=== PATIENT | male | born 1960 | race African-American/Black ===

== ENCOUNTER 2018-12-03 08:08 | Emergency (ER) | payer MEDICAID ==
[~2018-12-03] VITALS: Ht 185.4 cm; Wt 102.1 kg
[2018-12-03] MEDS ORDERED: NKM (08:19)
--- NOTE | 2018-12-03 08:21 | NUR ---
ED Nurse Note: PT WALKED IN TO ER TODAY FROM HOME. AOX4. PT C/O LOWER BACK PAIN, 06/11 X THIS AM AROUND 0200. PT DENIES ANY RECENT TRAUMA OR INJURY BUT DOES STATE THAT HE DID INJURE HIS BACK AT WORK APRIL OF LAST YEAR. GAIT STABLE. PT DENIES NUMBNESS OR TINGLING. FULL ROM OF BILATERAL LOWER EXTREMITIES, CAP REFILL <3 SECONDS, MUSCLE STRENTH 5/5, CIRCULATION AND SENSATION INTACT.
[2018-12-03 08:24] VITALS: BP 148/96
[2018-12-03] MEDS ORDERED: IBUPROFEN600 MG ORAL (09:04)
[2018-12-03] MEDS ORDERED: MUPIROCIN22 GM TOPIC (09:04)
[2018-12-03] MEDS ORDERED: BACTRIM DS TAB1 EAC1 ORAL (09:04)
[2018-12-03] MEDS ORDERED: NORCO 5-325 TA1 EACH ORAL (09:04)
[2018-12-03] MEDS ORDERED: CYCLOBENZAPRINE10 MG ORAL (09:04)
[2018-12-03 09:09] VITALS: BP 142/92
[2018-12-03] MEDS ORDERED: BACLOFEN10 MG ORAL (10:01)
--- NOTE | 2018-12-03 10:48 | Emergency Room Report ---
History of Present Illness General Chief Complaint: Back Pain-No Injury Source: Patient Present Illness HPI Patient has a history of chronic back injury and is currently on disability. Patient has repeated exacerbations of back pain at time. Patient states that he has had extensive workup including MRI physical therapy and has occasional back spasms. He feel that he's having another back abdomen exacerbation attack. And would like to have some pain medications. He states that he also has some cramps in his left lower extremities. At times his blood pressure is elevated. He denies any headache chest pain shortness breath at this time. He is comfortable receiving pain medications. In addition patient also complains of history of ingrown toenail. He states that he does have some right toe pain. He denies any actual discharge. States that he's been trimming his own nails. 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 In addition patient also complains of papular eruptions in the back of his neck. This is near his skin line. This is consistent with folliculitis. Patient states in the past he is taking antibiotics and it has improved. He's uncertain exactly the name of the antibiotics that he's taken. No other complaints were noted.No other modifying factors. No other associated signs and symptoms. No other complaints were noted. Allergies: Coded Allergies: No Known Allergies (Unverified , 12/03/18) Patient History Past Medical History: HTN Past Surgical History: none Pertinent Family History: none Social History: Denies: smoking, alcohol use, drug use Reviewed Nursing Documentation: PMH: Agreed; PSxH: Agreed Nursing Documentation-PM Past Medical History: No Stated History Review of Systems All Other Systems: negative except mentioned in HPI Physical Exam Vital Signs Date Time Temp Pulse Resp B/P (MAP) Pulse Ox O2 Delivery O2 Flow Rate FiO2 12/03/18 08:16 98.2 85 16 155/100 96 Room Air Sp02 EP Interpretation: reviewed, normal General Appearance: alert, mild distress Head: atraumatic Eyes: bilateral eye normal inspection ENT: normal ENT inspection, hearing grossly normal, normal voice Neck: normal inspection, full range of motion, supple, no bony tend Respiratory: normal inspection, lungs clear, normal breath sounds, no respiratory distress, no retraction, no wheezing Cardiovascular #1: regular rate, rhythm, no edema Gastrointestinal: normal inspection, normal bowel sounds, non tender, soft, no guarding, no hernia Genitourinary: no CVA tenderness Musculoskeletal: tender - Lower back Neurologic: normal inspection, alert, responsive, speech normal Psychiatric: normal inspection, judgement/insight normal, mood/affect normal Skin: other - papular follicular eruptions, no abscess Medical Decision Making Diagnostic Impression: Primary Impression: Back pain Additional Impressions: Folliculitis Ingrown nail of great toe of left foot ER Course Patient presents emergency department today complaining lower back pain eruptions in the neck and toe pain. Differential considerations include back strain, folliculitis, abscess, ingrown toenail, paronychia just name a few. Patient's exam is fairly benign and no acute interventions indicated this time. Patient symptoms are chronic in character. No evidence of any acute emergency. No evidence of AAA. Patient will be given prescription for antibiotics. And pain medications.Patient is advised to follow up with primary doctor in 2-3 days and return the emergency room for any worsening symptoms and as needed. Last Vital Signs Date Time Temp Pulse Resp B/P (MAP) Pulse Ox O2 Delivery O2 Flow Rate FiO2 12/03/18 09:09 98.3 82 18 142/92 99 Room Air Status: improved Disposition: HOME, SELF-CARE Condition: Stable Scripts Baclofen* (BACLOFEN*) 10 Mg Tablet 10 MG ORAL THREE TIMES A DAY for 7 Days, TAB Prov: Brennen Ignacio MD 12/03/18 Mupirocin* (MUPIROCIN*) 22 Gm Oint...g. 1 APPLIC TOPIC THREE TIMES A DAY for 10 Days, GM Prov: Brennen Ignacio MD 12/03/18 Trimethoprim/Sulfamethoxazole 160/800* (BACTRIM DS TABLET*) 1 Each Tablet 1 TAB ORAL Q12H, #14 TAB 0 Refills Prov: Brennen Ignacio MD 12/03/18 Cyclobenzaprine Hcl* (FLEXERIL*) 10 Mg Tablet 10 MG ORAL THREE TIMES A DAY, #14 TAB Prov: Brennen Ignacio MD 12/03/18 Ibuprofen* (MOTRIN*) 600 Mg Tablet 600 MG ORAL Q8H PRN for For Pain, #20 TAB 0 Refills Prov: Brennen Ignacio MD 12/03/18 Hydrocodone Bit/Acetaminophen 5-325* (NORCO 5-325*) 1 Each Tablet 1 TAB ORAL Q6H PRN for For Pain, #10 TAB 0 Refills Prov: Brennen Ignacio MD 12/03/18 Referrals: NOT CHOSEN IPA/MD,REFERRING (PCP) Patient Instructions: Back Pain, Adult, Ingrown Toenail, Folliculitis Brennen Ignacio MD Dec 03, 2018 10:48
== END 2018-12-03 09:11 | disposition home or self-care (01) ==
LOC: EMR 08:30
DX: M54.9 Dorsalgia, unspecified (principal); G89.29 Other chronic pain; L73.9 Follicular disorder, unspecified; L60.0 Ingrowing nail; I10 Essential (primary) hypertension
CPT/HCPCS: 99282

== ENCOUNTER → 2019-06-12 | Emergency (ER) | payer MEDICAID ==
[~2019-06-12] VITALS: Ht 190.5 cm; Wt 102.5 kg
[~2019-06-12] MED LIST: BACLOFEN10 MG ORAL; BACTRIM DS TAB1 EAC1 ORAL; CYCLOBENZAPRINE10 MG ORAL; IBUPROFEN600 MG ORAL; MUPIROCIN22 GM TOPIC; NKM; NORCO 5-325 TA1 EACH ORAL; UNOBMED
[2019-06-12 17:10] VITALS: BP 149/87
--- NOTE | 2019-06-12 17:10 | NUR ---
ED Nurse Note: pt walked in to ED due to headache. per pt, "I just like to see dr while I am waiting my girlfriend to be discharge." it is ongoing issue for over 1 yr. compliant for meds. AAO x4. respirations even and non-labored noted. no cp, sob or blurry vision. will wait for the further order.
--- NOTE | 2019-06-12 17:46 | Emergency Room Report ---
History of Present Illness General Chief Complaint: Hypertension Source: Patient Present Illness HPI This patient left prior to evaluation by medical provider. Allergies: Coded Allergies: No Known Allergies (Unverified , 12/03/18) Nursing Documentation-[facility] Past Medical History: No History, Except For Hx Hypertension: Yes Physical Exam Vital Signs Date Time Temp Pulse Resp B/P (MAP) Pulse Ox O2 Delivery O2 Flow Rate FiO2 06/12/19 17:10 98.1 81 18 149/87 (107) 96 Room Air Medical Decision Making PA Attestation Dr. Chun is my supervising Physician whom patient management has been discussed with. Diagnostic Impression: Primary Impression: Patient left without being seen ER Course This patient left prior to evaluation by medical provider. Last Vital Signs Date Time Temp Pulse Resp B/P (MAP) Pulse Ox O2 Delivery O2 Flow Rate FiO2 06/12/19 17:10 98.1 81 18 149/87 (107) 96 Room Air Disposition: LEFT W/OUT BEING SEEN Condition: Unknown Nicol Dunn Jun 12, 2019 17:46
== END | disposition left against medical advice (07) ==
LOC: EMR 17:38
DX: Z53.21 Procedure and treatment not carried out due to patient leaving prior to being seen by health care provider (principal)

== ENCOUNTER 2019-10-12 19:19 | Emergency (ER) | payer MEDICAID ==
[~2019-10-12] VITALS: Ht 190.5 cm; Wt 103.4 kg
--- NOTE | 2019-10-12 20:36 | NUR ---
ED Nurse Note: Pt ambulated to ED from home lois 710 lower back and bilat knee pain, VSS except for BP 150s
[2019-10-12] MEDS ORDERED: IBUPROFEN600 MG ORAL (21:11)
[2019-10-12] MEDS ORDERED: HYDROCHLOROTHIA25 MG ORAL (21:11)
[2019-10-12] MEDS ORDERED: CYCLOBENZAPRINE10 MG ORAL (21:11)
[2019-10-12] MEDS ORDERED: BACTRIM DS TAB1 EAC1 ORAL (21:11)
--- NOTE | 2019-10-12 21:16 | Emergency Room Report ---
History of Present Illness General Chief Complaint: General Complaint Source: Patient Present Illness HPI Disclaimer: Please note that this report is being documented using [employer] technology. This can lead to erroneous entry secondary to incorrect interpretation by the dictating instrument. HPI: 59-year-old male with history of hypertension and chronic back pain after an injury 3 years ago presents for evaluation of multiple complaints. First, he is requesting a refill of his hydrochlorothiazide, 50 mg daily, which he ran out of a few weeks ago. He is also requesting a refill of Bactrim which she was treated with 4 months ago for folliculitis of his upper neck. He states it is come back after getting his haircut a little while ago complaining of worsening pain and occasional bleeding while combing. Denies any fevers chills or blistering otherwise. He denies any headaches, visual changes, lightheadedness, fatigue chest pain shortness of breath, abdominal pain, vomiting, diarrhea, dysuria, hematuria, urinary retention, lower extremity weakness. He is complaining of chronic low back pain for which he used to take hydrocodone's but ran out. He does not have a PMD. He is asking for medication refills. Denies any new injury. Denies numbness, tingling, weakness. PMH: Chronic back pain, hypertension, folliculitis PSH: Denies Allergies: Denies Social Hx: Denies Allergies: Coded Allergies: No Known Allergies (Unverified , 12/03/18) Nursing Documentation-PMH Hx Hypertension: Yes Hx Diabetes: Yes Review of Systems All Other Systems: negative except mentioned in HPI Physical Exam Vital Signs Date Time Temp Pulse Resp B/P (MAP) Pulse Ox O2 Delivery O2 Flow Rate FiO2 10/12/19 19:30 98.2 78 19 157/86 (109) 96 Room Air General: Awake and alert, no acute distress HEENT: NC/AT. EOMI. uvula is midline. Tonsils are 1+. Mild pharyngeal erythema but no edema, no exudate, no purulence Cardiovascular: RRR. S1 and S2 normal. No murmur appreciated Resp: Normal work of breathing. No cough, wheezing or crackles appreciated Skin: Intact. Small pustules over the back of the neck extending into the scalp. No bleeding, no purulent drainage, mild erythema. No edema. No blistering, Nikolsky negative. MSK: Normal tone and bulk. Moving all extremities. No obvious deformity. Neuro: Awake and alert. Mentating appropriately. Back/Spine: No midline tenderness in the cervical, thoracic or lumbosacral spine. Mild paraspinal tenderness. Medical Decision Making Diagnostic Impression: Primary Impression: Back pain, chronic Additional Impressions: Upper respiratory infection Folliculitis Medication refill Hypertension ER Course This 59-year-old male presented for evaluation of multiple complaints. Patient is in no acute distress, well-appearing though he is hypertensive he is asymptomatic. We will refill his hydrochlorothiazide as well as his Bactrim for folliculitis. Discussed that opiates are not indicated for chronic back pain but will refill Motrin and Flexeril which he has been treated with in the past. He declined lidocaine patches stating that it did not work. He is neurologically intact and has no new injury. Do not believe he requires emergent labs or imaging at this time. Otherwise well-appearing. He will be referred to primary care clinics as well as orthopedics for his chronic back pain. Discussed reasons to return to the emergency department. He understands and agrees with this treatment plan. Last Vital Signs Date Time Temp Pulse Resp B/P (MAP) Pulse Ox O2 Delivery O2 Flow Rate FiO2 10/12/19 19:30 98.2 78 19 157/86 (109) 96 Room Air Disposition: HOME, SELF-CARE Condition: Stable Scripts Hydrochlorothiazide* (HYDROCHLOROTHIAZIDE*) 25 Mg Tablet 50 MG ORAL DAILY, #30 TAB Prov: Americo Chun MD 10/12/19 Trimethoprim/Sulfamethoxazole 160/800* (BACTRIM DS TABLET*) 1 Each Tablet 1 TAB ORAL Q12H, #14 TAB 0 Refills Prov: Americo Chun MD 10/12/19 Cyclobenzaprine Hcl* (FLEXERIL*) 10 Mg Tablet 10 MG ORAL THREE TIMES A DAY, #14 TAB Prov: Americo Chun MD 10/12/19 Ibuprofen* (MOTRIN*) 600 Mg Tablet 600 MG ORAL Q8H PRN for For Pain, #20 TAB 0 Refills Prov: Americo Chun MD 10/12/19 Referrals: [facility] Open 24 hour /7 days a week by Appointment Only [address] [facility] [id number] Patient Instructions: Back Exercises, Upper Respiratory Infection, Adult, Easy- to-Read, Folliculitis Additional Instructions: Please take the medications prescribed today as instructed for treatment of the folliculitis and for your lower back pain. Follow-up with orthopedic urgent care or with any of the clinics listed here to establish self as a new patient to treat your hypertension, chronic back pain that may require further treatments. Follow-up with 1 of these clinics as soon as possible. Return to the emergency department new or worsening symptoms. Americo Chun MD Oct 12, 2019 21:16
[2019-10-12 21:20] VITALS: BP 157/86
--- NOTE | 2019-10-12 21:20 | NUR ---
ER DISCHARGE NOTE: Patient is cleared to be discharged per ERMD, pt is aox4, on room air, with stable vital signs. pt was given dc and prescription instructions, pt was able to verbalize understanding, pt id band removed. pt is able to ambulate with steady gait. pt took all belongings.
[2019-10-30] MEDS ORDERED: IBUPROFEN600 MG ORAL (16:29)
== END 2019-10-12 21:20 | disposition home or self-care (01) ==
LOC: EMR 21:20
DX: G89.29 Other chronic pain (principal); M54.5 Low back pain; J06.9 Acute upper respiratory infection, unspecified; L73.9 Follicular disorder, unspecified; I10 Essential (primary) hypertension; Z76.0 Encounter for issue of repeat prescription; E11.9 Type 2 diabetes mellitus without complications
CPT/HCPCS: 99282

== ENCOUNTER → 2019-10-30 | Emergency (ER) | payer MEDICAID ==
[~2019-10-30] VITALS: Ht 188 cm; Wt 102.5 kg
[~2019-10-30] MED LIST changes: +Acetaminophen 500mg (ES) tab ORAL ONE; +HYDROCHLOROTHIA25 MG ORAL; +Ketorolac 30mg Inj IM ONE
[2019-10-30 16:15] VITALS: BP 153/90
--- NOTE | 2019-10-30 16:20 | NUR ---
ED Nurse Note: Dr. Rosas at bedside.
--- NOTE | 2019-10-30 16:23 | NUR ---
ED Nurse Note: X-ray at bedside.
--- NOTE | 2019-10-30 16:29 | Emergency Room Report ---
History of Present Illness General Chief Complaint: Pain Source: Patient Present Illness HPI 59-year-old male history of left knee surgery presents with left knee pain that started this morning worsened with movement alleviated throughout severity is mild, no fevers no chills, patient presents for evaluation Allergies: Coded Allergies: No Known Allergies (Unverified , 12/03/18) Patient History Past Medical History: see triage record Reviewed Nursing Documentation: PMH: Agreed; PSxH: Agreed Nursing Documentation-PMH Past Medical History: No History, Except For Hx Hypertension: Yes Hx Diabetes: Yes Review of Systems All Other Systems: negative except mentioned in HPI Physical Exam Vital Signs Date Time Temp Pulse Resp B/P (MAP) Pulse Ox O2 Delivery O2 Flow Rate FiO2 10/30/19 16:05 98.1 102 19 153/90 (111) 99 Room Air General Appearance: well appearing, no apparent distress Head: normocephalic, atraumatic ENT: hearing grossly normal, normal voice Neck: full range of motion, supple Respiratory: no respiratory distress, speaking full sentences Musculoskeletal: other - Left lower extremity: 2+ PT fires EHL, 5-5 knee flexion extension, tenderness to palpation along the anterior aspect of the knee , valgus varus negative, anterior posterior drawer negative range of motion intact no redness no overlying erythema Neurologic: alert, normal gait Psychiatric: mood/affect normal Skin: no rash Medical Decision Making Diagnostic Impression: Primary Impression: Arthritis of knee, left ER Course 59-year-old male presents most likely with arthritis of the left knee, low suspicion for septic joint, no redness no erythema range of motion intact X-ray negative patient given pain medication disposition home with return precautions follow-up with PCP Other X-Ray Diagnostic Results Other X-Ray Diagnostic Results : X-Ray ordered: Left knee # of Views/Limited Vs Complete: 2 View Indication: Pain EP Interpretation: Yes Interpretation: no dislocation, no fractures Impression: Other - Arthritis noted Electronically Signed by: Oleg Rosas MD Last Vital Signs Date Time Temp Pulse Resp B/P (MAP) Pulse Ox O2 Delivery O2 Flow Rate FiO2 10/30/19 16:15 98.1 19 153/90 99 Room Air 10/30/19 16:05 102 Disposition: HOME, SELF-CARE Condition: Stable Scripts Ibuprofen* (MOTRIN*) 600 Mg Tablet 600 MG ORAL Q8H PRN for For Pain, #30 TAB 0 Refills Prov: Oleg Rosas MD 10/30/19 Referrals: Orthopedic Urgent Care Patient Instructions: Arthritis, [id number], Knee Pain, [id number] Additional Instructions: The patient was provided with discharge instructions, notified to follow-up with a primary care doctor and or specialist in the next 24-48 hours, and to return to the ED if they have worsening of their symptoms. Please note that this report is being documented using [employer] technology. This can lead to erroneous entry secondary to incorrect interpretation by the dictating instrument. Oleg Rosas MD Oct 30, 2019 16:29
[2019-10-30 16:47] VITALS: BP 152/90
--- NOTE | 2019-10-30 16:47 | NUR ---
ER DISCHARGE NOTE: Patient is cleared to be discharged per ERMD, pt is aox4, on room air, with stable vital signs. pt was given dc and prescription instructions, pt was able to verbalize understanding, pt id band removed. pt is able to ambulate with steady gait, cane provided. pt took all belongings.
--- NOTE | 2019-10-30 17:38 | Diagnostic Imaging Report ---
Indication: Left knee pain Technique: 3 views of the left knee Comparison: None Findings: No acute fractures. No dislocations. No suprapatellar effusions. Impression: Negative
== END | disposition home or self-care (01) ==
LOC: EMR 16:15
DX: M17.12 Unilateral primary osteoarthritis, left knee (principal); I10 Essential (primary) hypertension; E11.9 Type 2 diabetes mellitus without complications
CPT/HCPCS: 73562; 96372; J1885; J8540; Z7502; 99283